=== PATIENT | male | born 1965 | race Caucasian/White ===

== ENCOUNTER → 2018-03-11 | Outpatient (CLI) | payer OTHER ==
[~2018-03-11] MED LIST: FLEXERIL PO; IBUPROFEN 800800 M1 PO; LANTUS SUBQ; NORCO 5-325 TA1 EACH PO; NOVOLOG100 UNIT/1 SUBQ
== END ==
LOC: M.RAD 16:33
DX: M20.5X2 Other deformities of toe(s) (acquired), left foot (principal)

== ENCOUNTER 2018-03-24 07:40 | Emergency (ER) | payer OTHER ==
[~2018-03-24] VITALS: Ht 190.5 cm; Wt 93.0 kg
[2018-03-24] MEDS ORDERED: NOVOLOG100 UNIT/1 SUBQ (07:54)
[2018-03-24] MEDS ORDERED: LANTUS SUBQ (07:54)
[2018-03-24] MEDS ORDERED: IBUPROFEN 800800 M1 PO (07:55)
[2018-03-24 08:08] VITALS: BP 187/101
[2018-03-24] MEDS ORDERED: NORCO 5-325 TA1 EACH PO (08:09)
[2018-03-24] MEDS ORDERED: FLEXERIL PO (08:09)
== END 2018-03-24 08:15 | disposition home or self-care (01) ==
LOC: M.ERS 07:40
DX: M54.5 Low back pain (principal); M25.551 Pain in right hip; E10.9 Type 1 diabetes mellitus without complications

== ENCOUNTER → 2018-04-02 | Outpatient (CLI) | payer OTHER | LOC: M.MRI 07:53 | DX: M51.16 Intervertebral disc disorders with radiculopathy, lumbar region (principal); M47.26 Other spondylosis with radiculopathy, lumbar region; M48.04 Spinal stenosis, thoracic region; E10.8 Type 1 diabetes mellitus with unspecified complications; Z79.4 Long term (current) use of insulin ==